=== PATIENT | female | born 1995 | race Caucasian/White ===

== ENCOUNTER → 2017-06-02 | Outpatient (CLI) | payer OTHER ==
[~2017-06-02] MED LIST: GLUC1CAP48 PO; LACT1CAP6 PO; NORG1TAB34 PO
--- NOTE | 2017-06-02 17:27 | RAD ---
OB ultrasound greater than 14 weeks 06/02/2017 Clinical History: Second trimester with uterine size discrepancy.. Technique: A real time ultrasound examination of the gravid uterus was performed. Multiple images were obtained. Findings: There is a single living IUP. The fetus is in a cephalicposition. cardiac and somatic activity is seen. The heart rate is 165 beats permit minute. The placenta is posterior. No focal abnormality of the placenta is seen. The amniotic fluid level is within normal limits. The MARILYN measures 9.1 cm. The maternal cervix is closed. It measures 5.8cm in length. Neither maternal ovary is visualized. The following measurements were obtained: BPD 3.8 cm 17 weeks 5 days HC 14.4 cm 17 weeks 4 days AC 12 cm 17 weeks 5 days FL 2.6 cm 17 weeks 6 days The estimated gestational age by ultrasound is 17 weeks 5 days plus or minus a standard deviation of 10 days. The estimated date of delivery of by ultrasound on today's study is 11/05/2017. The estimated weight is 207 g +/- 30 1 g. Evaluation of anatomy is limited due to the position of the fetus and the patient's large body habitus. The brain, spine, kidneys, stomach, urinary bladder, four-chamber heart, three-vessel umbilical cord and abdominal umbilical cord insertion and all 4 extremities are visualized and appear to be within normal limits. Impression: Single living IUP with an estimated gestational age by ultrasound on today's study of 17 weeks 5 days plus or minus a standard deviation of 10 days.. The estimated date of delivery by ultrasound is 11/05/2017.
== END | disposition home or self-care (01) ==
LOC: US 14:49
PROVIDERS: ATTEND Obstetrics & Gynecology
DX: O09.92 Supervision of high risk pregnancy, unspecified, second trimester (principal); O26.842 Uterine size-date discrepancy, second trimester; Z3A.17 17 weeks gestation of pregnancy
CPT/HCPCS: 76805